=== PATIENT | male | born 1975 | race Caucasian/White ===

== ENCOUNTER 2016-05-20 10:56 | Emergency (ER) | payer OTHER ==
[~2016-05-20] VITALS: Ht 182.9 cm; Wt 93.0 kg
[2016-05-20 10:59] VITALS: BP 144/88
--- NOTE | 2016-05-20 11:46 | ED HAND/WRIST INJURY COMPLAINT ---
History of Present Illness General Chief Complaint: Laceration Procedure Stated Complaint: LAC TO LEFT THUMB LAST NIGHT Source: patient Exam Limitations: no limitations Vital Signs & Intake/Output Vital Signs & Intake/Output Vital Signs Date Time Temp Pulse Resp B/P Pulse O2 O2 Flow FiO2 Ox Delivery Rate 05/20 1059 97.1 93 20 144/88 100 Room Air Allergies Coded Allergies: codeine (UPSET STOMACH 05/20/16) Reconcile Medications Cephalexin (Keflex) 500 MG CAPSULE 1 CAP PO TID soft tissue foriegn body Hydrocodone/Acetaminophen (Hydrocodon-Acetaminophen 5-325) 5 MG-325 MG TABLET 1-2 TAB PO Q4-6 PRN PRN pain Triage Note: PT TO ED C/O SPLINTER TO LEFT THUMB. STATES HE GOT SOME OF IT OUT LAST NIGHT AT HOME, BUT STATES HE THINKS THERE MAY STILL BE SOME WOOD IN THERE DUE TO HOW PAINFUL IT STILL IS. PT STATES HE WAS FALLING AND GRABBED ONTO A WOOD RAIL AND THAT IS WHEN HE SUSTAINED THE SPLINTER. STATES LAST TETANUS SHOT WAS ABOUT 6 YEARS AGO. Triage Nurses Notes Reviewed? yes Occurred: just prior to arrival Duration: day(s):, constant, continues in ED Timing: recent history Injury Environment: home No Modifying Factors: none HPI: 40-year-old male comes into emergency room for further evaluation of piece of sliver that went into the patient's left thumb. Pain is sharp. Continuous. Patient reports that he cut into it last night and removed a small piece of wood were reports that he still feels like there is something in his hand. Denies any other associated symptoms. Past History Travel History Traveled to Any past 21 day No Medical History Any Pertinent Medical History? see below for history Musculoskeletal: disk herniation Surgical History Surgical History: non-contributory Psychosocial History What is your primary language Italian Tobacco Use: Current Daily Use Daily Tobacco Use Amount/Type: => 5 Cigarettes daily ETOH Use: denies use Illicit Drug Use: marijuana Family History Hx Contributory? No Review of Systems Review of Systems Constitutional: Reports: no symptoms. EENTM: Reports: no symptoms. Respiratory: Reports: no symptoms. Cardiovascular: Reports: no symptoms. GI: Reports: no symptoms. Genitourinary: Reports: no symptoms. Musculoskeletal: Reports: see HPI. Skin: Reports: no symptoms. Neurological/Psychological: Reports: no symptoms. Hematologic/Endocrine: Reports: no symptoms. Immunologic/Allergic: Reports: no symptoms. All Other Systems: Reviewed and Negative Physical Exam Physical Exam General Appearance: well developed/nourished, mild distress Head: atraumatic Eyes: Bilateral: normal appearance. Ears, Nose, Throat: normal ENT inspection, hearing grossly normal Neck: normal inspection Cardiovascular/Respiratory: no respiratory distress Back: normal inspection Hand Left: normal inspection, normal range of motion Hand Right: 1st finger, Soft tissue swelling, pain, Neurologic/Tendon: normal sensation, normal motor functions, normal tendon functions, responds to pain, no evidence tendon injury, no pulse deficit Skin: intact, normal color, warm/dry Lymphatic: no anterior cervical robyn Progress Differential Diagnosis: abscess, cellulitis, contusion, compartment syndrome, dislocation, felon, fracture, paronychia, sprain, tenosynovitis Plan of Care: Orders Procedure Date/time Status XRY-HAND, 2 Views LEFT 05/20 1144 Active Diagnostic Imaging: Viewed by Me: Radiology Read. Discussed w/RAD: Radiology Read. Radiology Impression: SERVICE DATE: 05/20/16 EXAM TYPE: RAD - XRY-HAND, TWO VIEWS L EXAMINATION: XR HAND, LEFT CLINICAL INFORMATION: History of large sliver within the hand. Evaluate for foreign body. COMPARISON: None TECHNIQUE: Lateral and PA views of the left hand were obtained. FINDINGS: There are no markings provided on the radiographs to indicate the site of suspected foreign body. A small, 1 mm density projecting over the thenar region probably represents an artifact. It is not definitively seen on the lateral view. Bones of the wrist and hand have normal density and alignment. The joint spaces are maintained. No focal soft tissue swelling or soft tissue emphysema. IMPRESSION: 1. No acute osseous injury within the left hand or wrist. 2. There are no large radiopaque foreign bodies within the hand or wrist. 3. Punctate, 1 mm opacity in the thenar region is suspected to represent an artifact. 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 Follow-up with plastic surgeon provided. Watch for signs of infection such as redness or discharge or chills. Return if any other concerns worsening symptoms. Please note that there might be incidental findings in your evaluation that are unrelated to the current emergency department visit. Please notify your primary care doctor about this emergency department visit in order to obtain and review all of the testing performed so that these incidental findings can be monitored as needed. If you had an x-ray performed, please understand that some fractures may not be seen on the initial set of x-rays. If your symptoms persist you might need a repeat set of x-rays to check for such a fracture. If you had a laceration evaluated, please understand that foreign bodies such as glass or wood may not be visible to the naked eye or on plain x-rays. If the wound becomes red, swollen, increasingly more painful or if there is any drainage from the wound, please have it reevaluated by a physician for the possibility of a retained foreign body. Departure Forms: Customer Survey General Discharge Information Prescriptions: Current Visit Scripts Hydrocodone/Acetaminophen (Hydrocodon-Acetaminophen 5-325) 1-2 TAB PO Q4-6 PRN PRN pain #10 TAB Cephalexin (Keflex) 1 CAP PO TID #21 CAP Comments 05/20/2016 3:17:28 PM Plastic surgeon's name and phone number was handwritten on discharge instructions. Patient has a foreign body. Patient started on oral antibiotics. Patient referred to plastic surgery. There is nothing palpable on exam. To deep in soft tissue to try to open up in the emergency room. Discussed risks of infection. Patient understands and agrees with plan of care.
--- NOTE | 2016-05-20 12:54 | RADIOLOGY REPORT ---
EXAMINATION: XR HAND, LEFT CLINICAL INFORMATION: History of large sliver within the hand. Evaluate for foreign body. COMPARISON: None TECHNIQUE: Lateral and PA views of the left hand were obtained. FINDINGS: There are no markings provided on the radiographs to indicate the site of suspected foreign body. A small, 1 mm density projecting over the thenar region probably represents an artifact. It is not definitively seen on the lateral view. Bones of the wrist and hand have normal density and alignment. The joint spaces are maintained. No focal soft tissue swelling or soft tissue emphysema. IMPRESSION: 1. No acute osseous injury within the left hand or wrist. 2. There are no large radiopaque foreign bodies within the hand or wrist. 3. Punctate, 1 mm opacity in the thenar region is suspected to represent an artifact.
[2016-05-20] MEDS ORDERED: HYDROCODON-ACE1 EAC2 PO (13:14)
[2016-05-20] MEDS ORDERED: KEFLEX500 M1 PO (13:14)
== END 2016-05-20 13:53 ==
LOC: ERH 10:56
DX: M60.28 Foreign body granuloma of soft tissue, not elsewhere classified, other site (principal)
CPT/HCPCS: 73120-LT